=== PATIENT | female | born 1990 | race Caucasian/White ===

== ENCOUNTER 2019-06-11 10:15 | Emergency (ER) | payer MEDICAID, SELFPAY ==
[2019-06-11 10:33] VITALS: BP 109/65; PULSE 70; RESP 16; TEMP 36.8; O2SAT 98
--- NOTE | 2019-06-11 10:39 | ED.DENTAL ---
HPI - Dental/Oral General Chief complaint: Dental/Oral Stated complaint: Toothache Time Seen by Provider: 06/11/19 10:39 Source: patient and RN notes reviewed Limitations: no limitations History of Present Illness HPI Narrative: 29-year-old female who presents to [facility] care with complaints of dental pain to the right lower back molar for the past 2-3 days with pain radiating to her jaw and her ear. Patient states that she previously had a root canal and crown placed previously in [place] which fell off and she was told that she needed to have the tooth pulled. Patient states that was before she got ready to move back to [place] and she didn't want to have it done prior to moving. Patient has noted gum swelling around #30 tooth with portion of tooth missing, no drainage or noted facial swelling present, no difficulty with swallowing or breathing. MD Complaint: tooth pain Location: Tooth # (30) Onset (ago): day(s) (3) Duration: constant Severity: mild Relieving factors: nothing Exacerbating factors: chewing Context: history of dental caries Associated symptoms: gum swelling, ear pain and other (jaw pain) Treatment prior to arrival: oral analgesic Related Data Home Medications Medication Instructions Recorded Confirmed omeprazole magnesium [Prilosec OTC] 40 mg PO DAILY 06/11/19 06/11/19 Allergies Allergy/AdvReac Type Severity Reaction Status Date / Time sulfanilamide Allergy Unknown Hives Verified 06/11/19 10:37 Review of Systems Review of Systems: Narrative: CONSTITUTIONAL: Denies fever, chills, or sweats. EYES: Denies visual changes, redness, or discharge. ENT: Denies rhinorrhea, congestion, sore throat,positive right ear pain, dental pain to #30 tooth. CARDIOVASCULAR: Denies chest pain, palpitations, or edema. RESPIRATORY: Denies cough or dyspnea. GASTROINTESTINAL: Denies abdominal pain, nausea, vomiting, or diarrhea. GENITOURINARY: Denies dysuria or hematuria. SKIN: Denies rash or itching. MUSCULOSKELETAL: Denies back pain, joint pain, or myalgia. NEUROLOGIC: Denies headache, numbness, or weakness. PSYCHIATRIC: Denies anxiety or depression. All systems reviewed & are unremarkable except as noted in HPI and below PMFSH Past Medical History Medical History (Updated 06/12/19 @ 11:31 by Noemi Whitaker NP) GERD (gastroesophageal reflux disease) Surgical History Surgical History (Updated 06/12/19 @ 11:32 by Noemi Whitaker NP) Previous section Family History Family History Other Diabetes mellitus Social History Social History (Updated 06/12/19 @ 11:36 by Noemi Whitaker NP) Smoking status: Current every day smoker Tobacco type: cigarettes Alcohol intake: never Living arrangements: with family Gender identity (if verbalized by the patient): Female Comments At time of signature, agree with nursing past medical, surgical, socia history. There is no relevant family history pertinent to the presenting complaint Exam Narrative: Exam Narrative: GENERAL: Well-appearing, well-nourished, and in no acute distress. HEAD: Normocephalic, atraumatic. EYES: PERRLA and EOMI. ENT: Nares clear, no rhinorrhea or epistaxis. Mucous membranes moist.TM's normal with good light reflex, throat pink with no exudates, lesions or tonsil enlargement. no Ishan angina, redness and swelling of gum around #30 tooth with radiation of pain to right jaw and right ear, tooth had previous crown and root canal with part of tooth missing. NECK: Supple.no facial swelling or any lymphadenopathy. CHEST: Clear to auscultation. No respiratory distress.SAO2 98% on room air. HEART: Regular rate and rhythm. No murmur heard. Normal peripheral pulses. ABDOMEN: Soft, nontender, nondistended, normal active bowel sounds. EXTREMITIES: Normal range of motion. No edema. SKIN: Warm, dry, no rash. NEURO: No focal deficits. Alert and oriented x3. Course Vital Signs Vit
== END 2019-06-11 10:57 | disposition home or self-care (01) ==
PROVIDERS: Emergency Provider Registered Nurse
DX: K04.7 Periapical abscess without sinus (principal); K21.9 Gastro-esophageal reflux disease without esophagitis; F17.210 Nicotine dependence, cigarettes, uncomplicated
CPT/HCPCS: 99203; G0463

== ENCOUNTER 2019-11-19 13:25 | Emergency (ER) | payer OTHER, SELFPAY ==
--- NOTE | 2019-11-19 13:34 | ED.GENADULT ---
HPI - General Adult General Stated complaint: [place] Time Seen by Provider: 11/19/19 13:34 Source: patient Mode of arrival: ambulatory Limitations: no limitations History of Present Illness HPI narrative: 29-year-old female patient presents to the [facility] with complaints of esophageal and throat pain that started today while at work. Patient states that she did drink some coffee this morning shortly before the pain started. Patient states she is also been drinking some water today. Patient states she attempted to eat but states that the pain was too bad and was unable to eat. Patient states that she left work to the pain. Patient states she has taken to famotidine as well as Mylanta and states that the symptoms have not improved. Patient denies any fevers, body aches or chills. Patient denies any shortness of breath or chest pain. Denies any abdominal pain, nausea, vomiting or diarrhea. Patient states that she did eat some broth last night but was able to sleep and lay down without any issues last night. Patient states she has had issues with acid reflux and heartburn before in the past. Related Data Home Medications Medication Instructions Recorded Confirmed omeprazole magnesium [Prilosec OTC] 40 mg PO DAILY 06/11/19 06/11/19 Allergies Allergy/AdvReac Type Severity Reaction Status Date / Time sulfanilamide Allergy Unknown Hives Verified 06/11/19 10:37 Review of Systems Review of Systems: Narrative: CONSTITUTIONAL: Denies fever, chills, or sweats. EYES: Denies visual changes, redness, or discharge. ENT: Denies rhinorrhea, congestion, positive sore throat and esophageal pain, denies otalgia. CARDIOVASCULAR: Denies chest pain, palpitations, or edema. RESPIRATORY: Denies cough or dyspnea. GASTROINTESTINAL: Denies abdominal pain, nausea, vomiting, or diarrhea. GENITOURINARY: Denies dysuria or hematuria. SKIN: Denies rash or itching. MUSCULOSKELETAL: Denies back pain, joint pain, or myalgia. NEUROLOGIC: Denies headache, numbness, or weakness. PSYCHIATRIC: Denies anxiety or depression. [facility] Past Medical History Medical History GERD (gastroesophageal reflux disease) Surgical History Surgical History Previous section Family History Family History Other Diabetes mellitus Social History Social History Smoking status: Current every day smoker Tobacco type: cigarettes Alcohol intake: never Gender identity (if verbalized by the patient): Female Comments At the time of my signature I agree with nursing past medical history, surgical, social, and family history. There is no relevant family history pertinent to the presenting complaint. Exam Narrative: Exam Narrative: GENERAL: Well-appearing, well-nourished, and in no acute distress. HEAD: Normocephalic, atraumatic. EYES: PERRLA and EOMI. ENT: Nares clear, no rhinorrhea or epistaxis. Mucous membranes moist. Posterior pharynx with no erythema, tonsillectomy, exudates or lesions present. NECK: Supple. No lymphadenopathy CHEST: Clear to auscultation. No respiratory distress. HEART: Regular rate and rhythm. No murmur heard. Normal peripheral pulses. ABDOMEN: Soft, nontender, nondistended, normal active bowel sounds. EXTREMITIES: Normal range of motion. No edema. SKIN: Warm, dry, no rash. NEURO: No focal deficits. Alert and oriented x3. Course Vital Signs Vital signs: Vital Signs Temperature 36.7 C 11/19/19 13:35 Pulse Rate 58 L 11/19/19 13:35 Respiratory Rate 18 11/19/19 13:35 Blood Pressure 117/59 L 11/19/19 13:35 Pulse Oximetry 100 11/19/19 13:35 Temperature 36.7 C 11/19/19 13:35 Pulse Rate 58 L 11/19/19 13:35 Respiratory Rate 18 11/19/19 13:35 Blood Pressure 117/59 L 11/19/19 13:35 Pulse
[2019-11-19 13:35] VITALS: BP 117/59; PULSE 58; RESP 18; TEMP 36.7; O2SAT 100
== END 2019-11-19 13:55 | disposition home or self-care (01) ==
PROVIDERS: Emergency Provider Nurse Practitioner Family
DX: K21.9 Gastro-esophageal reflux disease without esophagitis (principal); F17.210 Nicotine dependence, cigarettes, uncomplicated
CPT/HCPCS: 99213; G0463

== ENCOUNTER 2019-11-29 09:23 | Emergency (ER) | payer OTHER, SELFPAY ==
--- NOTE | ~2019-11-29 | XR_ITS ---
XR chest 1V portable DATE: 11/29/2019 10:19 INDICATION: Cough. TECHNIQUE: Portable upright AP chest on 12/09/2019 at 1016 hours COMPARISON: None FINDINGS: Normal heart size. No hilar or mediastinal enlargement. No pulmonary infiltrate or consolid ation, pleural effusion or pulmonary vascular congestion or pneumothorax. Included skeletal structure s are unremarkable. IMPRESSION: No active cardiopulmonary disease Reviewed, dictated and finalized at location A.
[2019-11-29 09:50] VITALS: BP 119/80; PULSE 72; RESP 12; TEMP 36.9; O2SAT 98
[2019-11-29 09:51] VITALS: O2SAT 99
--- NOTE | 2019-11-29 10:35 | ECG_ITS ---
Measurements Intervals [place] Rate: 62 P: 13 MO: 132 QRS: 22 QRSD: 97 T: 31 QT: 391 QTc: 400 Interpretive Statements SINUS RHYTHM NORMAL ECG Electronically Signed On 11-29-2019 11:25:18 CDT by David Jackson D.O.
--- NOTE | 2019-11-29 10:36 | ED.URI ---
HPI - URI/Sore Throat General Chief Complaint: Upper Respiratory Infection <Vonda Condon PA-C - Last Filed: 11/29/19 12:11> Stated Complaint: covid symptoms <CARLINE Emerson Last Filed: 11/29/19 12:11> Time Seen by Provider: 11/29/19 10:11 <CARLINE Emerson Last Filed: 11/29/19 12:11> Source: patient <CARLINE Emerson Last Filed: 11/29/19 12:11> Mode of arrival: ambulatory <CARLINE Emerson Last Filed: 11/29/19 12:11> Limitations: no limitations <CARLINE Emerson Last Filed: 11/29/19 12:11> History of Present Illness HPI Narrative: This is a 29 year old female that presents to the ER for cold symptoms x 1 week. Reports fatigue, chills, cough, congestion, sore throat and some diarrhea. Also reports she has been feeling short of breath. Denies fever or chest pain. <CARLINE Emerson Last Filed: 11/29/19 12:11> Related Data Home Medications: Home Medications Medication Instructions Recorded Confirmed omeprazole magnesium [Prilosec OTC] 40 mg PO DAILY 06/11/19 06/11/19 <Vonda Condon PA-C - Last Filed: 11/29/19 12:11> Allergies/Adverse Reactions: Allergies Allergy/AdvReac Type Severity Reaction Status Date / Time sulfanilamide Allergy Unknown Hives Verified 06/11/19 10:37 <CARLINE Emerson Last Filed: 11/29/19 12:11> Review of Systems Review of Systems: Narrative: CONSTITUTIONAL: Denies fever ENT: Reports rhinorrhea, congestion, sore throat CARDIOVASCULAR: Denies chest pain, or edema. RESPIRATORY: Reports cough and dyspnea. <CARLINE Emerson Last Filed: 11/29/19 12:11> All systems reviewed & are unremarkable except as noted in HPI and below <CARLINE Emerson Last Filed: 11/29/19 12:11> PMFSH Past Medical History Medical History: Medical History (Updated 11/29/19 @ 12:11 by Vonda Condon PA-C) GERD (gastroesophageal reflux disease) <Vonda Condon PA-C - Last Filed: 11/29/19 12:11> Surgical History Surgical History: Surgical History Previous section <Vonda Condon PA-C - Last Filed: 11/29/19 12:11> Family History Family History: Family History Other Diabetes mellitus <Vonda Condon PA-C - Last Filed: 11/29/19 12:11> Social History Social History: Social History (Updated 11/29/19 @ 10:39 by Vonda Condon PA-C) Smoking status: Current every day smoker Tobacco type: cigarettes Alcohol intake: never Substance use: never Gender identity (if verbalized by the patient): Female <Vonda Condon PA-C - Last Filed: 11/29/19 12:11> Exam Narrative: Exam Narrative: GENERAL: Well-appearing, well-nourished, and in no acute distress. HEAD: Normocephalic, atraumatic. EYES: EOMI. ENT: Nares clear, no rhinorrhea or epistaxis. Mucous membranes moist. Oropharynx without tonsillar hypertrophy exudate or other lesions. Bilateral TMs pearly bai non-bulging NECK: Supple. No adenopathy or masses. CHEST: Clear to auscultation. No respiratory distress. No wheezes rales or rhonchi HEART: Regular rate and rhythm. No murmur heard. Normal peripheral pulses. EXTREMITIES: Normal range of motion. No edema. SKIN: Warm, dry, no rash. NEURO: No focal deficits. Alert and oriented x3. PSYCH: Normal mood and affect <Vonda Condon PA-C - Last Filed: 11/29/19 12:11> Course Vital Signs Vital signs: Vital Signs Temperature 98.5 F 11/29/19 09:50 Pulse Rate 72 11/29/19 09:50 Respiratory Rate 12 11/29/19 09:50 Blood Pressure 119/80 11/29/19 09:50 Pulse Oximetry 98 11/29/19 09:50 Temperature 98.5 F 11/29/19 09:50 Pulse Rate 70 11/29/19 11:54 Respiratory Rate 12 11/29/19 11:54 Blood Pressure 114/67 11/29/19 11:54 Pulse Oximetry 99 11/29/19 11:54 <Vonda Condon PA-C - Last Filed: 11/29/19
[2019-11-29 11:00] LABS: Basophils Absolute Auto 0.1 K/mm3 (0.0-0.1); Basophils Percent Auto 0.7 % (0.2-1.2); Eosinophils Absolute Auto 0.2 K/mm3 (0-0.3); Eosinophils Percent Auto 1.9 % (0-4.4); Hematocrit 40.8 % (37.0-47.0); Hemoglobin 13.7 g/dL (12.0-15.0); Immature Granulocyte Absolute 0.03 K/mm3 (0.00-0.031); Immature Granulocyte Percent A 0.3 % (0-0.5); Lymphocytes Absolute Auto 3.05 K/mm3 (0.9-3.2); Lymphocytes Percent Auto 26.8 % (18.3-44.2); Mean Corpuscular HGB Conc 33.6 g/dl (32-36); Mean Corpuscular Hemoglobin 29.9 pg (26-34); Mean Corpuscular Volume 89.1 fl (80-100); Mean Platelet Volume 10.7 fl (7.4-10.4); Monocytes Absolute Auto 0.7 K/mm3 (0.1-0.6); Monocytes Percent Auto 5.9 % (2.6-8.5); Neutrophils Absolute Auto 7.3 K/mm3 (1.3-6.7); Neutrophils Percent Auto 64.4 % (45.5-73.1); Platelet Count Result 277 k/mm3 (150-375); Red Blood Count 4.58 M/mm3 (4.2-5.4); Red Cell Distribution Width 12.4 % (11.5-14.5); White Blood Count 11.4 K/mm3 (4.5-10.0)
[2019-11-29 11:23] LABS: Alanine Aminotransferase 15 U/L (4-35); Albumin Level 4.4 g/dL (3.5-5.1); Alkaline Phosphatase 65 U/L (38-126); Anion Gap 9 mmol/L (8-16); Aspartate Amino Transferase 23 U/L (14-36); Bilirubin,Total 0.2 mg/dL (0.2-1.3); Blood Urea Nitrogen 11 mg/dL (7-17); Carbon Dioxide 25 mmol/L (22-30); Chloride 105 mmol/L (98-107); Estimated Glomerular Filt Rate > 60; Glucose 104 mg/dL (65-105); Lactate Dehydrogenase 419 U/L (313-618); Potassium 4.1 mmol/L (3.4-5.0); Sodium 139 mmol/L (137-145)
[2019-11-29 11:54] VITALS: BP 114/67; PULSE 70; RESP 12; O2SAT 99
[2019-11-29 23:12] LABS: SARS-CoV-2 RNA PCR Negative
== END 2019-11-29 12:15 | disposition home or self-care (01) ==
PROVIDERS: Physician Assistant; Emergency Provider General Practice
DX: B34.9 Viral infection, unspecified (principal); Z20.828 Contact with and (suspected) exposure to other viral communicable diseases; K21.9 Gastro-esophageal reflux disease without esophagitis; F17.210 Nicotine dependence, cigarettes, uncomplicated
CPT/HCPCS: 36415; 71045; 80053; 82728; 83615; 85025; 87635; 93005; 99283; C9803; U0003

== ENCOUNTER 2020-02-05 09:20 | Emergency (ER) | payer OTHER, MEDICAID, SELFPAY ==
--- NOTE | 2020-02-05 09:32 | ED.EAR ---
HPI - Ear Problem General Chief complaint: Ear Stated complaint: Ear pain Time Seen by Provider: 02/05/20 09:32 Source: patient and RN notes reviewed Mode of arrival: ambulatory Limitations: no limitations History of Present Illness HPI Narrative: 29-year-old female presents with bilateral ear pain, right-sided throat pain, nasal congestion, rhinorrhea, sweats. She denies chills, body aches, cough, shortness of breath, loss of sense of taste or smell. Denies any known sick contacts MD Complaint: ear pain Related Data Allergies Allergy/AdvReac Type Severity Reaction Status Date / Time Sulfa (Sulfonamide Allergy Mild Hives Verified 02/05/20 09:48 Antibiotics) nitrofurantoin Allergy Unknown VOMITING Verified 01/02/20 14:04 AND DIARRHEA sulfanilamide Allergy Unknown Hives Verified 01/02/20 14:04 NITROFURANTOIN MACROCRYSTAL Allergy Unknown VOMITING Uncoded 01/02/20 14:04 Review of Systems Review of Systems: Narrative: CONSTITUTIONAL: Denies malaise, chills, or fever. Reports sweats EYES: Denies visual changes, redness, or discharge. ENT: Reports rhinorrhea, congestion, otalgia and sore throat. CARDIOVASCULAR: Denies chest pain, palpitations, or edema. RESPIRATORY: Denies cough or dyspnea. GASTROINTESTINAL: Denies abdominal pain, nausea, vomiting, diarrhea SKIN: Denies rash or itching. MUSCULOSKELETAL: Denies myalgia. NEUROLOGIC: Denies headache. All systems reviewed & are unremarkable except as noted in HPI and below PMFSH Past Medical History Medical History (Updated 02/05/20 @ 09:51 by Charisma Shi NP) GERD (gastroesophageal reflux disease) Surgical History Surgical History (System 01/02/20 @ 14:04 by Kylah Lora) Previous section Family History Family History (System 01/02/20 @ 14:04 by Kylah Lora) Other Diabetes mellitus Social History Social History (System 01/02/20 @ 14:04 by Kylah Lora) Smoking status: Current every day smoker Tobacco type: cigarettes Alcohol intake: never Substance use: never Gender identity (if verbalized by the patient): Female Comments At time of signature, agree with nursing past medical, surgical, social and family history. There is no relevant family history pertinent to the presenting complaint Exam Narrative: Exam Narrative: GENERAL: Well-appearing, well-nourished, and in no acute distress. HEAD: Normocephalic EYES: PERRLA, conjunctivae clear ENT: Nares clear, turbinates edematous and erythematous, clear discharge. Mucous membranes moist. TM pearly bai with dull light reflex bilaterally; no tragal tenderness. Oropharynx erythematous without lesions. Tonsils not enlarged and without exudate, no drooling, no hoarseness, no trismus, uvula midline. NECK: Supple. No lymphadenopathy CHEST: Clear to auscultation, breath sounds equal. No wheezing, rhonchi, rales, or stridor. No respiratory distress, speaks in full sentences. HEART: Regular rate and rhythm. No murmur heard. SKIN: Warm, dry, no rash. NEURO: Alert and oriented x3. PSYCH: Normal mood and affect Course Course Emergency Course: Patient is aware of diagnosis, understands and agrees to treatment plan. Anticipatory guidance given. Patient agrees to follow-up as directed and is aware of reasons to seek care at the emergency department. Portions of this record may have been created with voice recognition software Vital Signs Vital signs: Vital Signs Temperature 99.0 F 02/05/20 09:36 Pulse Rate 80 02/05/20 09:36 Respiratory Rate 16 02/05/20 09:36 Blood Pressure 140/82 02/05/20 09:36 Pulse Oximetry 100 02/05/20 09:36 Temperature 99.0 F 02/05/20 09:36 Pulse Rate 80 02/05/20 09:36 Respiratory Rate 16 02/05/20 09:36 Blood Pressure 140/82 02/05/20 09:36 Pulse Oximetry 100 02/05/20 09:36 Reviewed. Medical Decision Making MDM Narrative Medical decision making narrative: Differential diagnosis considered: [place]
[2020-02-05 09:36] VITALS: BP 140/82; PULSE 80; RESP 16; TEMP 37.2; O2SAT 100
== END 2020-02-05 09:57 | disposition home or self-care (01) ==
PROVIDERS: Emergency Provider Nurse Practitioner
DX: J06.9 Acute upper respiratory infection, unspecified (principal); Z20.828 Contact with and (suspected) exposure to other viral communicable diseases; F17.210 Nicotine dependence, cigarettes, uncomplicated; K21.9 Gastro-esophageal reflux disease without esophagitis
CPT/HCPCS: 87081; 87880; 99213; G0463

== ENCOUNTER 2020-02-05 10:09 | Outpatient (NON) | payer OTHER, MEDICAID, SELFPAY ==
[2020-02-05 22:32] LABS: SARS-CoV-2 RNA PCR Negative
== END 2020-02-05 10:10 ==
LOC: ANHCOVIDDT 10:13
PROVIDERS: Visit Provider Nurse Practitioner
DX: J06.9 Acute upper respiratory infection, unspecified (principal)
CPT/HCPCS: 87635; C9803; U0003

== ENCOUNTER 2021-03-04 15:04 | Outpatient (CLI) | payer OTHER, SELFPAY ==
--- NOTE | ~2021-03-04 | XR_ITS ---
XR knee LT 3V DATE: 03/04/2021 15:32 INDICATION: Left knee pain TECHNIQUE: AP, lateral, sunrise views COMPARISON: None FINDINGS: There is mild suprapatellar knee joint effusion. No fracture, dislocation, periosteal reaction or bone destruction, joint space narrowing, radiopaque intra-articular loose body or chondrocalcinosis is detected. IMPRESSION: Mild knee joint effusion Reviewed, dictated and finalized at location [facility]. [employer] IMPRESSION: Mild knee joint effusion
== END 2021-03-04 15:05 ==
LOC: MICIMG 15:07
PROVIDERS: Visit Provider Physician Assistant
DX: M25.462 Effusion, left knee (principal)
CPT/HCPCS: 73562

== ENCOUNTER 2021-04-06 19:06 | Emergency (ER) | payer OTHER, MEDICAID, SELFPAY ==
[2021-04-06 19:17] VITALS: BP 127/68; PULSE 79; RESP 18; TEMP 36.9; O2SAT 98
--- NOTE | 2021-04-06 19:37 | ED.GENADULT ---
HPI - General Adult General Chief complaint: Upper Respiratory Infection Stated complaint: Congestion Source: patient Mode of arrival: ambulatory Limitations: no limitations History of Present Illness HPI narrative: Patient presents for evaluation of sinus congestion, drainage, headache since Monday. She further endorses sore throat and sensation that there is fluid in her right ear. She has a popping sensation in her right ear. She has experienced thick mucopurulent discharge from her nares, productive cough of green/yellow sputum, fever and chills. She denies any nausea, vomiting, chest pain, diarrhea. She has taken dayquil and nyquil without much improvement. She had COVID in November 2020. She has not received COVID vaccination. She is unsure whether she had a flu shot. One of her friends recently had similar symptoms. She does not smoke. LMP ended yesterday. No additional complaints or concerns. Related Data Allergies Allergy/AdvReac Type Severity Reaction Status Date / Time Sulfa (Sulfonamide Allergy Mild Hives Verified 02/05/20 09:48 Antibiotics) nitrofurantoin Allergy Unknown VOMITING Verified 01/02/20 14:04 AND DIARRHEA sulfanilamide Allergy Unknown Hives Verified 01/02/20 14:04 NITROFURANTOIN MACROCRYSTAL Allergy Unknown VOMITING Uncoded 01/02/20 14:04 Review of Systems Review of Systems: CONSTITUTIONAL: Reports fever and chills EYES: Denies visual changes, redness, or discharge. ENT: Reports sinus congestion, drainage, sore throat and sensation of middle ear fluid on right CARDIOVASCULAR: Denies chest pain, palpitations, or edema. RESPIRATORY: Reports cough and SOB. GASTROINTESTINAL: Denies abdominal pain, nausea, vomiting, or diarrhea. GENITOURINARY: Denies dysuria or hematuria. SKIN: Denies rash or itching. MUSCULOSKELETAL: Denies back pain, joint pain, or myalgia. NEUROLOGIC: Reports headache. Denies numbness, dizziness, or weakness. PSYCHIATRIC: Denies anxiety or depression. [facility] Past Medical History Medical History Anxiety Depression GERD (gastroesophageal reflux disease) Surgical History Surgical History Previous section Family History Family History Mother Diabetes mellitus Social History Social History Alcohol intake: never Substance use: never Living arrangements: with family Gender identity (if verbalized by the patient): Female Sexual Orientation (if Verbalized by the Patient): Straight or Heterosexual Spiritual care concerns: No Exam Narrative: GENERAL: Well-appearing, well-nourished, and in no acute distress. HEAD: Normocephalic, atraumatic. EYES: PERRLA and EOMI. ENT: Nares clear, no rhinorrhea or epistaxis. Mucous membranes moist. Oropharynx without tonsillar hypertrophy exudate or other lesions. There is posterior pharyngeal erythema. Right TM is erythematous with middle ear fluid present. Ilateral TMs pearly bai nonbulging NECK: Supple. No adenopathy or masses. No carotid bruits or JVD CHEST: Clear to auscultation. No respiratory distress. No wheezes rales or rhonchi HEART: Regular rate and rhythm. No murmur heard. Normal peripheral pulses. ABDOMEN: Soft, nontender, nondistended, normal active bowel sounds. EXTREMITIES: Normal range of motion. No edema. SKIN: Warm, dry, no rash. NEURO: No focal deficits. Alert and oriented x3. PSYCH: Normal mood and affect. Course Course Emergency Course: This is a 31-year-old female who presented with respiratory symptoms and sore throat. Strep was negative. Covid negative. Influenza negative. Will treat with Augmentin in the event that her strep was a false negative. Also provided with a prescription for Mucinex DM. Advised increase hydration. Follow-up o
== END 2021-04-06 19:56 | disposition home or self-care (01) ==
PROVIDERS: Emergency Provider Nurse Practitioner
DX: J02.9 Acute pharyngitis, unspecified (principal); Z20.822 Contact with and (suspected) exposure to COVID-19; K21.9 Gastro-esophageal reflux disease without esophagitis; Z86.16 Personal history of COVID-19
CPT/HCPCS: 87081; 87426; 87804; 87880; 99213; C9803; G0463

== ENCOUNTER 2021-07-17 08:29 | Emergency (ER) | payer OTHER, SELFPAY ==
[2021-07-17 08:38] VITALS: BP 122/70; PULSE 83; RESP 18; TEMP 36.6; O2SAT 100
--- NOTE | 2021-07-17 08:38 | ED.SKABFB ---
HPI - Skin/Abscess/Foreign Bdy General Chief complaint: Skin/Abscess/Foreign Body Stated complaint: Ingrown Hair Time Seen by Provider: 07/17/21 08:41 Source: patient Mode of arrival: ambulatory Limitations: no limitations History of Present Illness HPI narrative: 31 y/o female presented for c/o ingrown hair to [place] area. States this is her second time having an ingrown hair. MD complaint: rash Related Data Home Medications Medication Instructions Recorded Confirmed venlafaxine 37.5 mg 1 cap PO DAILY 07/17/21 07/17/21 capsule,extended release 24 hr Allergies Allergy/AdvReac Type Severity Reaction Status Date / Time Sulfa (Sulfonamide Allergy Mild Hives Verified 07/17/21 08:43 Antibiotics) nitrofurantoin Allergy Unknown VOMITING Verified 07/17/21 08:43 AND DIARRHEA sulfanilamide Allergy Unknown Hives Verified 07/17/21 08:43 NITROFURANTOIN MACROCRYSTAL Allergy Unknown VOMITING Uncoded 07/17/21 08:43 Review of Systems Review of Systems: CONSTITUTIONAL: Denies fever, chills, or sweats. ENT: Denies rhinorrhea, congestion CARDIOVASCULAR: Denies chest pain RESPIRATORY: Denies cough or dyspnea. GASTROINTESTINAL: Denies abdominal pain GENITOURINARY: Denies dysuria or hematuria. SKIN: reports pimple to [place] MUSCULOSKELETAL: Denies back pain NEUROLOGIC: Denies headache PMFSH Past Medical History Medical History Anxiety Depression GERD (gastroesophageal reflux disease) Surgical History Surgical History Previous section Family History Family History Mother Diabetes mellitus Social History Social History Alcohol intake: never Substance use: never Gender identity (if verbalized by the patient): Female Sexual Orientation (if Verbalized by the Patient): Straight or Heterosexual Spiritual care concerns: No Comments At time of signature, I have reviewed and agree with nursing past medical, surgical, social and family history unless otherwise noted. Please see nursing chart for further information. There is no relevant family history pertinent to the presenting complaint Exam Narrative: GENERAL: Well-appearing HEAD: Normocephalic, atraumatic. EYES: conjunctivae clear, and EOMI. ENT: Mucous membranes moist. NECK: Supple. No lymphadenopathy CHEST: Clear to auscultation. No respiratory distress. HEART: Regular rate and rhythm. SKIN: Warm, dry. approx 3mm diameter pustule with active bloody drainage to center to right pubic; no induration or fluctuance, warmth or streaking NEURO: Alert and oriented x3. Course Course Emergency Course: Patient is aware of diagnosis, understands and agrees to treatment plan. Anticipatory guidance given. Patient agrees to follow-up as directed and is aware of reasons to seek care at the emergency department. Portions of this record may have been created with voice recognition software Level of Care: Express Care Visit Vital Signs Vital signs: Reviewed MDM - Skin/Abscess/Foreign Bdy MDM Narrative Medical decision making narrative: Pt had presented for painful abscess/boil to right [place] area, however at time of assessment she states I think it just popped. Endorsed active drainage to the site, pain improved. On exam active bloody drainage and no induration or fluctuance, minimally tender. Advised supportive treatment. v/u. Instructed patient to go to nearest ER immediately for any worsening symptoms including but not limited to: fever, pain, sore throat, headache, dizziness, chest pain, trouble breathing, or any symptoms concerning to the patient. Differential Diagnosis Differential diagnosis: Likely abscess of skin or subcutaneous tissue, urticaria, herpes zoster, cellulitis and contact dermatitis Discharg
== END 2021-07-17 08:52 | disposition home or self-care (01) ==
PROVIDERS: Emergency Provider Nurse Practitioner Family
DX: L08.9 Local infection of the skin and subcutaneous tissue, unspecified (principal); K21.9 Gastro-esophageal reflux disease without esophagitis; F41.9 Anxiety disorder, unspecified; F32.A Depression, unspecified
CPT/HCPCS: 99211; G0463

== ENCOUNTER 2021-10-07 10:26 | Emergency (ER) | payer OTHER, SELFPAY ==
--- NOTE | 2021-10-07 10:34 | PC.NURSE ---
pt states she actually needs to go to the imaging center and does not need to be seen in the ER.
== END 2021-10-07 11:00 | disposition left against medical advice (07) ==
LOC: ANHED 10:50
DX: Z53.21 Procedure and treatment not carried out due to patient leaving prior to being seen by health care provider (principal)
CPT/HCPCS: 99199

== ENCOUNTER 2021-10-26 08:55 | Outpatient (CLI) | payer OTHER, SELFPAY ==
--- NOTE | ~2021-10-26 | XR_ITS ---
EXAMINATION: XR barium swallow DATE: 10/26/2021 09:27 INDICATION: Dysphagia TECHNIQUE: The patient drank thick barium, gas-producing crystals, and thin barium. Fluoroscopic spot radiographs of the hypopharynx and esophagus were obtained. Fluoroscopy exposure time was 1.7 minut es. A total of 1309 fluoroscopic images were recorded. COMPARISON: None. FINDINGS: The pharynx is symmetric and without evidence of mass lesion or mucosal irregularity. The e sophagus is normal without mass or stricture. Esophageal motility is normal. Small sliding-type hiata l hernia with esophageal B ring at the gastroesophageal junction positioned approximately 4 cm above the level of the diaphragm. Slightly more cephalad esophageal A ring. No significant stenosis at eith er the A or B rings both of which dilated to at least 1.7 cm hypoechoic intraluminal diameter. There was no gastroesophageal reflux with provocative maneuvers. IMPRESSION: 1. Small sliding-type hiatal hernia with no significant stenosis at the esophageal A and B rings in t he distal esophagus. Reviewed, dictated and finalized at location A. IMPRESSION: 1. Small sliding-type hiatal hernia with no significant stenosis at the esophag eal A and B rings in the distal esophagus.
== END 2021-10-26 08:56 | disposition home or self-care (01) ==
LOC: ANHIMG 08:56
PROVIDERS: PCP Physician Assistant; Visit Provider Physician Assistant
DX: R13.10 Dysphagia, unspecified (principal); K44.9 Diaphragmatic hernia without obstruction or gangrene
CPT/HCPCS: 74220

== ENCOUNTER 2022-01-14 09:59 | Emergency (ER) | payer OTHER, SELFPAY ==
[2022-01-14 10:15] VITALS: BP 112/61; PULSE 69; RESP 16; TEMP 36.4; O2SAT 99
--- NOTE | 2022-01-14 11:05 | ED.GENADULT ---
HPI - General Adult General Chief complaint: Urogenital-Female Stated complaint: uti/cold sx Time Seen by Provider: 01/14/22 11:06 Source: patient, RN notes reviewed and old records reviewed Mode of arrival: ambulatory Limitations: no limitations History of Present Illness HPI narrative: 31-year-old female presents to the [facility] with complaints upper respiratory issues, cold, cough, congestion. Patient is a smoker. Patient also complaining of urinary symptoms, frequency, burning. Denies abdominal pain or chest pain. No shortness of breath. Related Data Home Medications Medication Instructions Recorded Confirmed venlafaxine 37.5 mg 1 cap PO DAILY 07/17/21 01/14/22 capsule,extended release 24 hr pantoprazole 40 mg tablet,delayed 40 mg PO DAILY 01/14/22 01/14/22 release propranolol 20 mg tablet 20 mg PO DAILY 01/14/22 01/14/22 Allergies Allergy/AdvReac Type Severity Reaction Status Date / Time Sulfa (Sulfonamide Allergy Mild Hives Verified 01/14/22 10:09 Antibiotics) nitrofurantoin Allergy Unknown VOMITING Verified 01/14/22 10:09 AND DIARRHEA sulfanilamide Allergy Unknown Hives Verified 01/14/22 10:09 NITROFURANTOIN MACROCRYSTAL Allergy Unknown VOMITING Uncoded 01/14/22 10:09 Review of Systems Review of Systems: All systems reviewed & are unremarkable except as noted in HPI and below Constitutional: Constitutional: Reports no additional constitutional complaints, Denies chills and Denies fever(s) Eyes: Eyes: Reports no additional eye complaints ENT: Reports as per HPI and Reports nasal congestion Cardiovascular: Cardiovascular: Reports no additional cardiovascular complaints Respiratory: Respiratory: Reports as per HPI, Reports chest congestion, Reports cough and Denies dyspnea Gastrointestinal: Gastrointestinal: Reports no additional gastrointestinal complaints Genitourinary: Genitourinary: Reports as per HPI and Reports dysuria Musculoskeletal: Musculoskeletal: Reports no additional musculoskeletal complaints Integumentary/Breasts: Skin/Breast: Reports system reviewed and no additional complaints, except as docu Neurologic: Reports system reviewed and no additional complaints, except as documented Psychiatric: Psychiatric: Reports no additional psychiatric complaints Allergic/Immunologic: Allergic/Immunologic: Reports no additional allergic/immunologic complaints PMFSH Past Medical History Medical History Anxiety Depression GERD (gastroesophageal reflux disease) Surgical History Surgical History Previous section Family History Family History Mother Diabetes mellitus Social History Social History Alcohol intake: never Substance use: never Gender identity (if verbalized by the patient): Female Sexual Orientation (if Verbalized by the Patient): Straight or Heterosexual Spiritual care concerns: No Comments At the time of my signature, I reviewed and agree with the nursing past medical, surgical, social, and family history. There is no relevant family history pertinent to the patient complaint. Exam Const: General: healthy appearing, comfortable, no acute distress, well developed, alert and well nourished Nutritional Appearance: well nourished Orientation/consciousness: patient oriented x3 Limitations: no limitations HENMT: Head: normal to inspection Ears: external ears normal, TM's normal bilaterally and EAC's normal Face/Nose/Sinus: Normal external nose present and Normal nares present Face and sinus: normal facial exam Throat: posterior oropharynx normal and uvula midline Eyes: General: appearance normal, both eyes and all related structures Conjunctivae: conjunctivae normal Pupils: Equal, round and reactive pupils present
== END 2022-01-14 11:48 | disposition home or self-care (01) ==
PROVIDERS: Emergency Provider Nurse Practitioner; PCP Physician Assistant
DX: J40 Bronchitis, not specified as acute or chronic (principal); N76.0 Acute vaginitis; K21.9 Gastro-esophageal reflux disease without esophagitis; F41.9 Anxiety disorder, unspecified; F32.A Depression, unspecified
CPT/HCPCS: 81003; 87070; 87491; 87591; 87661; 99214; G0463

== ENCOUNTER 2022-04-23 16:23 | Emergency (ER) | payer OTHER, SELFPAY ==
[2022-04-23 16:38] VITALS: BP 137/89; PULSE 104; RESP 20; TEMP 37.4; O2SAT 100
--- NOTE | 2022-04-23 16:47 | ED.URI ---
HPI - URI/Sore Throat General Chief Complaint: Upper Respiratory Infection Stated Complaint: Sore Throat/Vaginal Problems Time Seen by Provider: 04/23/22 16:50 Source: patient Mode of arrival: ambulatory Limitations: no limitations History of Present Illness HPI Narrative: Nydia is a 32-year-old female patient presenting to clinic today with multiple complaints. She reports that she has sore throat, headache, body aches, chills, possible vaginal laceration, and vaginal discharge. She reports that she was shaving her perineal area and may have cut the area and is having a lot of pain with urination over this area. MD elicited complaint: sore throat and nasal congestion Related Data Home Medications Medication Instructions Recorded Confirmed venlafaxine 37.5 mg 1 cap PO DAILY 07/17/21 01/14/22 capsule,extended release 24 hr pantoprazole 40 mg tablet,delayed 40 mg PO DAILY 01/14/22 01/14/22 release propranolol 20 mg tablet 20 mg PO DAILY 01/14/22 01/14/22 Allergies Allergy/AdvReac Type Severity Reaction Status Date / Time Sulfa (Sulfonamide Allergy Mild Hives Verified 01/14/22 10:09 Antibiotics) nitrofurantoin Allergy Unknown VOMITING Verified 01/14/22 10:09 AND DIARRHEA sulfanilamide Allergy Unknown Hives Verified 01/14/22 10:09 NITROFURANTOIN MACROCRYSTAL Allergy Unknown VOMITING Uncoded 01/14/22 10:09 Review of Systems Review of Systems: Pertinent positives per HPI. Patient denies any fever, rash, visual changes, dizziness, cough, shortness of breath, chest pain, palpitations, nausea, vomiting, diarrhea, constipation, abdominal pain, or any urinary issues. [facility] Past Medical History Medical History Anxiety Depression GERD (gastroesophageal reflux disease) Surgical History Surgical History Previous section Family History Family History Mother Diabetes mellitus Social History Social History Alcohol intake: never Substance use: never Living arrangements: with family Gender identity (if verbalized by the patient): Female Sexual Orientation (if Verbalized by the Patient): Straight or Heterosexual Spiritual care concerns: No Comments At the time of my signature, I reviewed and agree with the nursing past medical, surgical, social, and family history. There is no relevant family history pertinent to the patient complaint. Exam Narrative: General: Well-developed, well nourished, in no apparent distress Head: Normocephalic, atraumatic Eyes: Pupils equally round and reactive to light bilaterally, EOM intact, sclera and conjunctive clear, no discharge, lids normal Ears: TMs intact and clear, ear canals clear, no drainage, grossly hearing normal. Nose: Nares patent, clear nasal discharge, no inflammation, no sinus tenderness. Mouth: Oral pharynx without lesions or masses, good dentition, MMM. Oropharynx red with bilateral tonsillar enlargement Neck: Supple, trachea midline, enlargement of anterior cervical nodes, no thyroid masses or goiter palpable. Cardio: Regular rate and rhythm, s1 and s2 normal, no murmur appreciated. Resp: Clear to auscultation bilaterally, no rhonchi, rales, wheezing or rubs Abdomen: Soft, pliable, nontender to palpation, bowel sounds present all 4 quadrants, nondistended, no organomegaly, no CVAT tenderness : Pelvic exam performed with (Allegra CALDERON) at bedside. Verbal consent obtained from patient. Normal external female genitalia masses, perineal excoriation/small superficial laceration Urinary meatus: patent without discharge, Vagina: No lesions, masses, thick creamy odorous white vaginal discharge Course Course Emergency Course: Portions of this record may have been created with bryannai
== END 2022-04-23 17:03 | disposition home or self-care (01) ==
PROVIDERS: Emergency Provider Nurse Practitioner Family; PCP Physician Assistant
DX: S31.41XA Laceration without foreign body of vagina and vulva, initial encounter (principal); J02.0 Streptococcal pharyngitis; N76.0 Acute vaginitis; W45.8XXA Other foreign body or object entering through skin, initial encounter
CPT/HCPCS: 87880; 99213; G0463

== ENCOUNTER 2022-06-10 11:25 | Emergency (ER) | payer OTHER, SELFPAY ==
--- NOTE | ~2022-06-10 | XR_ITS ---
EXAMINATION: XR knee RT min 4V DATE: 06/10/2022 12:09 INDICATION: Diffuse right knee pain post injury one week prior TECHNIQUE: Anteroposterior, 2 oblique and crosstable lateral views of the affected knee were obtained COMPARISON: None. FINDINGS: Alignment is normal. No fracture. Joint spaces appear normal on nonweightbearing imaging. There is s ubtle chondrocalcinosis at the lateral compartment. Small right knee joint effusion without layering lipohemarthrosis. Soft tissues are unremarkable. IMPRESSION: 1. Small right knee joint effusion. No osseous abnormality. Reviewed, dictated and finalized at location A.
[2022-06-10 11:36] VITALS: BP 130/75; PULSE 69; RESP 16; TEMP 36.8; O2SAT 99
--- NOTE | 2022-06-10 11:38 | ED.LOWEXIN ---
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 She states it ?popped out of place and after 3 minutes she was able to pop it back into place ?. Patient has history of ACL injury and surgery on the knee. Patient states she made incident report at work that day but did not hear anything until today. States they want her to have an x-ray to give to them. Patient has been using a knee brace, ice and heat, and alternating Tylenol ibuprofen for pain. Patient also still having sore throat. Was treated for strep throat 2 weeks ago and symptoms have not resolved. Related Data Home Medications Medication Instructions Recorded Confirmed venlafaxine 37.5 mg 1 cap PO DAILY 07/17/21 06/10/22 capsule,extended release 24 hr pantoprazole 40 mg tablet,delayed 40 mg PO DAILY 01/14/22 06/10/22 release propranolol 20 mg tablet 20 mg PO DAILY 01/14/22 06/10/22 Allergies Allergy/AdvReac Type Severity Reaction Status Date / Time Sulfa (Sulfonamide Allergy Mild Hives Verified 06/10/22 11:34 Antibiotics) nitrofurantoin Allergy Unknown VOMITING Verified 06/10/22 11:34 AND DIARRHEA sulfanilamide Allergy Unknown Hives Verified 06/10/22 11:34 NITROFURANTOIN MACROCRYSTAL Allergy Unknown VOMITING Uncoded 06/10/22 11:34 Review of Systems Review of Systems: All systems reviewed & are unremarkable except as noted in HPI and below Constitutional: Constitutional: Denies body ache(s), Denies fever(s), Denies headache(s), Denies malaise and Denies weakness Eyes: Eyes: Denies loss of vision ENT: Denies otalgia, Denies headache(s), Denies nasal discharge, Denies sinus pain and Reports sore throat Cardiovascular: Cardiovascular: Denies chest pain, Denies irregular heart rhythm and Denies dyspnea Respiratory: Respiratory: Denies dyspnea Gastrointestinal: Gastrointestinal: Denies abdominal pain, Denies melena, Denies hematochezia, Denies diarrhea, Denies nausea and Denies vomiting Musculoskeletal: Musculoskeletal: Denies back pain, Denies myalgias and Reports arthralgias Integumentary/Breasts: Skin/Breast: Denies pruritus and Denies rash Neurologic: Denies headache(s), Denies loss of vision and Denies weakness Psychiatric: Psychiatric: Reports no additional psychiatric complaints PMFSH Past Medical History Medical History Anxiety Depression GERD (gastroesophageal reflux disease) Surgical History Surgical History Previous section Family History Family History Mother Diabetes mellitus Social History Social History Alcohol intake: never Substance use: never Living arrangements: with family Gender identity (if verbalized by the patient): Female Sexual Orientation (if Verbalized by the Patient): Straight or Heterosexual Spiritual care concerns: No Comments At time of signature, agree with nursing past medical, surgical, social and family history. There is no relevant family history pertinent to the presenting complaint. Exam Const: General: cooperative, healthy appearing, comfortable, no acute distress and well nourished Nutritional Appearance: well nourished Orientation/consciousness: patient oriented x3 Limitations: no limitations HENMT: Head: normal to inspection, normocephalic and atraumatic Ears: hearing grossly normal bilaterally, external ears normal and TM abnormal scarred bilateral Face/Nose/Sinus: Normal
== END 2022-06-10 12:42 | disposition home or self-care (01) ==
PROVIDERS: Emergency Provider Nurse Practitioner Family; PCP Physician Assistant
DX: S83.91XA Sprain of unspecified site of right knee, initial encounter (principal); X50.9XXA Other and unspecified overexertion or strenuous movements or postures, initial encounter; K21.9 Gastro-esophageal reflux disease without esophagitis; F41.9 Anxiety disorder, unspecified; F32.A Depression, unspecified
CPT/HCPCS: 73564; 87081; 87880; 99213; G0463

== ENCOUNTER 2022-11-28 19:07 | Emergency (ER) | payer OTHER, SELFPAY ==
--- NOTE | 2022-11-28 19:11 | ED.FEMALEGU ---
HPI - Female Genitourinary General Chief complaint: Urogenital-Female Stated complaint: vaginal issue Time Seen by Provider: 11/28/22 19:25 Source: patient and RN notes reviewed Mode of arrival: ambulatory Limitations: no limitations History of Present Illness HPI Narrative: 32-year-old female presents with concern for pain in her perineal area. She reports she had a laceration there several months ago and feels like that, however she does not know any factors that would have caused it. She reports she has been doing the Epson salt baths, using Vaseline. Reports pain is made worse when she has a bowel movement MD elicited complaint: other Related Data Home Medications Medication Instructions Recorded Confirmed Acid Medicare Biller (omeprazole) 11/28/22 Allergies Allergy/AdvReac Type Severity Reaction Status Date / Time Sulfa (Sulfonamide Allergy Mild Hives Verified 11/28/22 19:10 Antibiotics) nitrofurantoin Allergy Unknown VOMITING Verified 11/28/22 19:10 AND DIARRHEA Review of Systems Review of Systems: CONSTITUTIONAL: Denies malaise, chills, sweats, or fever. : Denies frequency, urgency SKIN: Reports perineal pain, reports it ramirez when she urinates All systems reviewed & are unremarkable except as noted in HPI and below PMFSH Past Medical History Medical History Anxiety Depression GERD (gastroesophageal reflux disease) Surgical History Surgical History Previous section Family History Family History Mother Diabetes mellitus Social History Social History Alcohol intake: never Substance use: never Living arrangements: with family Gender identity (if verbalized by the patient): Female Sexual Orientation (if Verbalized by the Patient): Straight or Heterosexual Spiritual care concerns: No Comments At time of signature, agree with nursing past medical, surgical, social and family history. There is no relevant family history pertinent to the presenting complaint Exam Narrative: GENERAL: Well-appearing, well-nourished, and in no acute distress. HEAD: Normocephalic, atraumatic. EYES: PERRLA, conjunctivae clear ENT: Mucous membranes moist. NECK: Supple. No lymphadenopathy CHEST: Clear to auscultation. No respiratory distress. HEART: Regular rate and rhythm. SKIN: Warm, dry. NEURO: Alert and oriented x3. PSYCH: Normal mood and affect : Female genitals images: 1. fissure Course Course Emergency Course: Patient is aware of diagnosis, understands and agrees to treatment plan. Anticipatory guidance given. Patient agrees to follow-up as directed and is aware of reasons to seek care at the emergency department. Portions of this record may have been created with voice recognition software Level of Care: Express Care Visit Vital Signs Vital signs: Reviewed. MDM - Female Genitourinary MDM Narrative Medical decision making narrative: Exam findings show no acute concerns or changes; patient is non-toxic appearing and is in no distress. Patient is appropriate for outpatient treatment and follow-up. Critical Care Time Critical Care Time Critical Care Time: No Discharge Plan Discharge Clinical Impression: Perineal fissure Patient Disposition: Home, Self-Care Condition: Stable Instructions: Sitz Bath (DC) Additional Instructions: Take Sitz baths as directed, apply emollient such as Vaseline throughout the day. Take stool softeners to avoid straining while having a bowel movement. Apply ointments as prescribed, you can alternate antibiotic ointment with the numbing ointment Make an appointment with your data warehouse consultant for further evaluation Prescriptions: New mupirocin 2 % ointment
[2022-11-28 19:17] VITALS: BP 126/67; PULSE 81; RESP 16; TEMP 36.8; O2SAT 98
== END 2022-11-28 19:36 | disposition home or self-care (01) ==
PROVIDERS: Emergency Provider Nurse Practitioner; PCP Physician Assistant
DX: N90.89 Other specified noninflammatory disorders of vulva and perineum (principal); K21.9 Gastro-esophageal reflux disease without esophagitis
CPT/HCPCS: 99213; G0463

== ENCOUNTER 2022-12-21 09:43 | Emergency (ER) | payer OTHER, SELFPAY ==
--- NOTE | 2022-12-21 09:46 | ED.URI ---
HPI - URI/Sore Throat General Chief Complaint: Upper Respiratory Infection Stated Complaint: Sore Throat Time Seen by Provider: 12/21/22 09:46 Source: patient Mode of arrival: ambulatory Limitations: no limitations History of Present Illness HPI Narrative: Nydia is a 32-year-old female patient presenting to clinic today with complaints of a sore throat, nausea, vomiting, diarrhea, cough, nasal congestion x4 days. She reports no known fever or chills. States she has vomited 4 times total and has had diarrhea 2-3 times per day. MD elicited complaint: sore throat Related Data Home Medications Medication Instructions Recorded Confirmed Acid Business Strategy Manager (omeprazole) 11/28/22 Allergies Allergy/AdvReac Type Severity Reaction Status Date / Time Sulfa (Sulfonamide Allergy Mild Hives Verified 12/21/22 09:46 Antibiotics) nitrofurantoin Allergy Unknown VOMITING Verified 12/21/22 09:46 AND DIARRHEA Review of Systems Review of Systems: Pertinent positives per HPI. Patient denies any fever, chills, rash, headache, visual changes, dizziness, cough, shortness of breath, chest pain, palpitations, nausea, vomiting, diarrhea, constipation, abdominal pain, or any urinary issues. PMF Past Medical History Medical History Anxiety Depression GERD (gastroesophageal reflux disease) Surgical History Surgical History Previous section Family History Family History Mother Diabetes mellitus Social History Social History Alcohol intake: never Substance use: never Living arrangements: with family Gender identity (if verbalized by the patient): Female Sexual Orientation (if Verbalized by the Patient): Straight or Heterosexual Spiritual care concerns: No Comments At the time of my signature, I reviewed and agree with the nursing past medical, surgical, social, and family history. There is no relevant family history pertinent to the patient complaint. Exam Narrative: General: Well-developed, well nourished, in no apparent distress Head: Normocephalic, atraumatic Eyes: Pupils equally round and reactive to light bilaterally, EOM intact, sclera and conjunctive clear, no discharge, lids normal Ears: TMs intact and congested, ear canals clear, no drainage, grossly hearing normal. Nose: Nares patent, clear nasal discharge, no inflammation, no sinus tenderness. Mouth: Oral pharynx red without lesions or masses, good dentition, MMM. Neck: Supple, trachea midline, no enlargement of anterior or posterior cervical nodes, no thyroid masses or goiter palpable. Cardio: Regular rate and rhythm, s1 and s2 normal, no murmur appreciated. Resp: Clear to auscultation bilaterally, no rhonchi, rales, wheezing or rubs Abdomen: Soft, pliable, bowel sounds present in all quadrants, generalized tender to palpation, no organomegly, no CVAT tenderness. Course Course Emergency Course: Portions of this record may have been created with voice recognition software. Level of Care: Express Care Visit Vital Signs Vital signs: Vital signs reviewed MDM - URI/Sore Throat MDM Narrative Medical decision making narrative: At the time of visit patient is resting comfortably on the exam table. Strep screen was obtained and negative in the clinic today. We will send strep for culture. I suspect patient has URI/pharyngitis/viral syndrome/viral gastroenteritis. Supportive measures were discussed with the patient she voiced understanding discharge instructions agrees to treatment plan. Will send in some Zofran for nausea Differential Diagnosis Differential diagnosis: Likely upper respiratory infection, otitis media, sinusitis, viral infection, bronchitis (COVID, gastroenteritis), influe
[2022-12-21 09:54] VITALS: BP 115/83; PULSE 82; RESP 16; TEMP 36.7; O2SAT 100
== END 2022-12-21 10:08 | disposition home or self-care (01) ==
PROVIDERS: Emergency Provider Nurse Practitioner Family; PCP Physician Assistant
DX: K52.9 Noninfective gastroenteritis and colitis, unspecified (principal); B34.9 Viral infection, unspecified; J06.9 Acute upper respiratory infection, unspecified; J02.9 Acute pharyngitis, unspecified; K21.9 Gastro-esophageal reflux disease without esophagitis
CPT/HCPCS: 87081; 87880; 99213; G0463

== ENCOUNTER 2023-03-20 09:11 | Emergency (ER) | payer OTHER, SELFPAY ==
[2023-03-20 09:30] VITALS: BP 123/66; PULSE 65; RESP 16; TEMP 36.5; O2SAT 100
--- NOTE | 2023-03-20 09:48 | ED.EYEPROB ---
HPI - Eye Problem General Chief complaint: Eye Problems Stated complaint: Eyes Irritation Time Seen by Provider: 03/20/23 09:34 Source: patient and RN notes reviewed Mode of arrival: ambulatory Limitations: no limitations History of Present Illness HPI Narrative: Patient presents today complaining of bilateral eye drainage, itching, and crusting with redness that started this morning. Son with similar symptoms. Denies vision changes or recent illness. Related Data Home Medications Medication Instructions Recorded Confirmed omeprazole 40 mg capsule,delayed 40 mg PO BID 03/20/23 03/20/23 release Allergies Allergy/AdvReac Type Severity Reaction Status Date / Time Sulfa (Sulfonamide Allergy Mild Hives Verified 03/20/23 09:35 Antibiotics) nitrofurantoin Allergy Unknown VOMITING Verified 03/20/23 09:35 AND DIARRHEA Review of Systems Review of Systems: CONSTITUTIONAL: Denies body aches, fever, chills, or sweats. EYES: Denies visual changes. + bilateral eye redness and discharge ENT: Denies rhinorrhea, congestion, sore throat, or otalgia. CARDIOVASCULAR: Denies chest pain, palpitations, or edema. RESPIRATORY: Denies cough or dyspnea. GASTROINTESTINAL: Denies abdominal pain, nausea, vomiting, or diarrhea. GENITOURINARY: Denies dysuria or hematuria. SKIN: Denies rash, itching, or wounds. MUSCULOSKELETAL: Denies back pain, joint pain, or myalgia. NEUROLOGIC: Denies headache, numbness, tingling, or weakness. PSYCH: Denies depression or anxiety. [facility] Past Medical History Medical History Anxiety Depression GERD (gastroesophageal reflux disease) Surgical History Surgical History Previous section Family History Family History Mother Diabetes mellitus Social History Social History Alcohol intake: never Substance use: never Living arrangements: with family Gender identity (if verbalized by the patient): Female Sexual Orientation (if Verbalized by the Patient): Straight or Heterosexual Spiritual care concerns: No Comments At time of signature, I have reviewed and agree with nursing past medical, surgical, social and family history unless otherwise noted. Please see nursing chart for further information. There is no relevant family history pertinent to the presenting complaint Exam Narrative: GENERAL: Well-appearing, well-nourished, and in no acute distress. HEAD: Normocephalic, atraumatic. EYES: EOMI. PERRL. Conjunctiva normal. No active drainage. ENT: Mucous membranes pink and moist. NECK: Normal AROM. CHEST: No respiratory distress. EXTREMITIES: Normal range of motion. No edema. SKIN: Warm, dry, no rash. Capillary refill normal. Normal skin turgor. NEURO: No focal deficits. Alert and oriented x3. Gait steady. PSYCH: Normal affect. No signs of depression or anxiety. Course Course Level of Care: Express Care Visit Vital Signs Vital signs: Vital Signs Temperature 97.7 F 03/20/23 09:30 Pulse Rate 65 03/20/23 09:30 Respiratory Rate 16 03/20/23 09:30 Blood Pressure 123/66 03/20/23 09:30 Pulse Oximetry 100 03/20/23 09:30 Oxygen Delivery Room Air 03/20/23 09:30 Temperature 97.7 F 03/20/23 09:30 Pulse Rate 65 03/20/23 09:30 Respiratory Rate 16 03/20/23 09:30 Blood Pressure 123/66 03/20/23 09:30 Pulse Oximetry 100 03/20/23 09:30 Oxygen Delivery Room Air 03/20/23 09:30 Reviewed MDM - Eye Problem MDM Narrative Medical decision making narrative: Son accompanied patient and has been diagnosed with conjunctivitis. Her exam is normal, but she will be given a prescription for drops if needed. Rx for ofloxacin sent to pharmacy. Differential Diagnosis Differential
== END 2023-03-20 09:56 | disposition home or self-care (01) ==
PROVIDERS: Emergency Provider Nurse Practitioner; PCP Physician Assistant
DX: H57.89 Other specified disorders of eye and adnexa (principal); K21.9 Gastro-esophageal reflux disease without esophagitis
CPT/HCPCS: 99213; G0463

== ENCOUNTER 2023-07-31 12:37 | Emergency (ER) | payer OTHER, MEDICAID, SELFPAY | END 2023-07-31 13:03 | disposition left against medical advice (07) | PROVIDERS: Emergency Provider Nurse Practitioner; PCP Physician Assistant | DX: Z53.21 Procedure and treatment not carried out due to patient leaving prior to being seen by health care provider (principal) | CPT/HCPCS: 99199 ==

== ENCOUNTER 2023-07-31 15:01 | Emergency (ER) | payer OTHER, SELFPAY ==
--- NOTE | 2023-07-31 15:22 | ED.NAVMDI ---
HPI - Nausea/Vomiting/Diarrhea General Chief complaint: Nausea/Vomiting/Diarrhea Stated complaint: diarrhea,vomitting Source: patient and RN notes reviewed Mode of arrival: ambulatory Limitations: no limitations History of Present Illness HPI Narrative: 33-year-old female presents with concern for nausea, vomiting, diarrhea for 3 days. She reports about 2 episodes of vomiting a day. She reports diarrhea every morning. She reports body aches, headache, upset stomach. Denies fever. She reports she is waiting the pass kidney stones and has been taking Flomax. She ran out of Zofran that she was given in the ER. She reports urine frequency, denies dysuria. She denies fever. MD elicited complaint: nausea, vomiting and diarrhea Related Data Home Medications Medication Instructions Recorded Confirmed omeprazole 40 mg capsule,delayed 40 mg PO BID 03/20/23 07/31/23 release atomoxetine 25 mg capsule 25 mg PO DAILY 07/31/23 07/31/23 escitalopram oxalate 5 mg tablet 5 mg PO DAILY 07/31/23 07/31/23 famotidine 20 mg tablet 20 mg PO DAILY 07/31/23 07/31/23 tamsulosin 0.4 mg capsule 0.4 mg PO BID 07/31/23 07/31/23 Allergies Allergy/AdvReac Type Severity Reaction Status Date / Time Sulfa (Sulfonamide Allergy Mild Hives Verified 07/31/23 15:32 Antibiotics) nitrofurantoin Allergy Unknown VOMITING Verified 07/31/23 15:32 AND DIARRHEA Review of Systems Review of Systems: CONSTITUTIONAL: Reports malaise. Denies chills, sweats, or fever. ENT: Denies rhinorrhea, congestion, sinus pain, otalgia or sore throat. CARDIOVASCULAR: Denies chest pain, palpitations, or edema. RESPIRATORY: Denies cough or dyspnea. GASTROINTESTINAL: Denies abdominal pain. Reports nausea, vomiting, diarrhea GENITOURINARY: Denies dysuria or hematuria. MUSCULOSKELETAL: Reports myalgia. NEUROLOGIC: Reports headache. All systems reviewed & are unremarkable except as noted in HPI and below PMFSH Past Medical History Medical History Anxiety Depression GERD (gastroesophageal reflux disease) Surgical History Surgical History Previous section Family History Family History Mother Diabetes mellitus Social History Social History Alcohol intake: never Substance use: never Living arrangements: with family Gender identity (if verbalized by the patient): Female Sexual Orientation (if Verbalized by the Patient): Straight or Heterosexual Spiritual care concerns: No Comments At time of signature, agree with nursing past medical, surgical, social and family history. There is no relevant family history pertinent to the presenting complaint Exam Narrative: GENERAL: Well-appearing, well-nourished, and in no acute distress. HEAD: Normocephalic, atraumatic. EYES: PERRLA, conjunctivae clear, and EOMI. ENT: Nares clear, turbinates pink, no rhinorrhea or epistaxis. Mucous membranes moist. Oropharynx without edema, erythema, or lesions. Tonsils not enlarged and without exudate. NECK: Supple. No lymphadenopathy CHEST: Speaks in full sentences. No respiratory distress. HEART: Regular rate and rhythm. ABDOMEN: Soft, flat, nondistended, nontender. No guarding, rebound tenderness, or rigidity. SKIN: Warm, dry, no rash. NEURO: Alert and oriented x3. PSYCH: Normal mood and affect Course Course Emergency Course: Patient is aware of diagnosis, understands and agrees to treatment plan. Anticipatory guidance given. Patient agrees to follow-up as directed and is aware of reasons to seek care at the emergency department. Portions of this record may have been created with voice recognition software Level of Care: Express Care Visit Vital Signs Vital signs: Reviewed. MDM - Nausea/Vo
[2023-07-31 15:45] VITALS: BP 124/84; PULSE 85; RESP 18; TEMP 36.9; O2SAT 100
[2023-07-31] MEDS: ONDANSETRON HCL ODT 4 MG TABLET PO (16:20)
== END 2023-07-31 16:35 | disposition home or self-care (01) ==
PROVIDERS: Emergency Provider Nurse Practitioner; PCP Physician Assistant
DX: R11.2 Nausea with vomiting, unspecified (principal); R19.7 Diarrhea, unspecified; K21.9 Gastro-esophageal reflux disease without esophagitis; F41.9 Anxiety disorder, unspecified; F32.A Depression, unspecified
CPT/HCPCS: 81003; 99213; A9270; G0463

== ENCOUNTER 2024-01-22 14:22 | Emergency (ER) | payer OTHER, SELFPAY ==
[2024-01-22 14:34] VITALS: BP 116/67; PULSE 76; RESP 19; TEMP 37.2; O2SAT 99
--- NOTE | 2024-01-22 14:41 | ED.GENADULT ---
HPI - General Adult General Chief complaint: Extremity Injury, Lower Stated complaint: FALL Time Seen by Provider: 01/22/24 14:41 Source: patient, RN notes reviewed and old records reviewed Mode of arrival: ambulatory Limitations: no limitations History of Present Illness HPI narrative: 33-year-old female presents to the [facility] with complaints of bilateral knee pain and left hip pain. Patient walks with a normal gait. History of surgery on the right knee. Mild swelling noted to the left knee. patient reports that she slipped this morning and fell. Denies hitting head. No loss of consciousness Patient states that she stands long periods of time and has increased pain of bilateral knees. Treatments prior to arrival: none Related Data Home Medications Medication Instructions Recorded Confirmed omeprazole 40 mg capsule,delayed 40 mg PO BID 03/20/23 01/22/24 release famotidine 20 mg tablet 20 mg PO DAILY 07/31/23 01/22/24 Allergies Allergy/AdvReac Type Severity Reaction Status Date / Time Sulfa (Sulfonamide Allergy Mild Hives Verified 01/22/24 14:34 Antibiotics) nitrofurantoin Allergy Unknown VOMITING Verified 01/22/24 14:34 AND DIARRHEA Review of Systems Review of Systems: All systems reviewed & are unremarkable except as noted in HPI and below Constitutional: Constitutional: Reports no additional constitutional complaints ENT: Reports system reviewed and no additional complaints, except as documented Cardiovascular: Cardiovascular: Reports no additional cardiovascular complaints, Denies chest pain and Denies dyspnea Respiratory: Respiratory: Reports no additional respiratory complaints, Denies chest congestion, Denies cough and Denies dyspnea Gastrointestinal: Gastrointestinal: Reports no additional gastrointestinal complaints, Denies abdominal pain, Denies nausea and Denies vomiting Musculoskeletal: Musculoskeletal: Reports as per HPI Integumentary/Breasts: Skin/Breast: Reports system reviewed and no additional complaints, except as docu PMFSH Past Medical History Medical History Anxiety Depression GERD (gastroesophageal reflux disease) Surgical History Surgical History H/O knee surgery right knee 2022 Previous section Family History Family History Mother Diabetes mellitus Social History Social History (Reviewed 12/02/24 @ 19:54 by JENNIFER Browne Alcohol intake: never Substance use: never Living arrangements: with family Gender identity (if verbalized by the patient): Female Sexual Orientation (if Verbalized by the Patient): Straight or Heterosexual Spiritual care concerns: No Comments At the time of my signature, I reviewed and agree with the nursing past medical, surgical, social, and family history. There is no relevant family history pertinent to the patient complaint. Exam Const: General: cooperative, healthy appearing, comfortable, no acute distress, well developed, alert and well nourished Nutritional Appearance: well nourished Orientation/consciousness: patient oriented x3 Limitations: no limitations HENMT: Head: normal to inspection Ears: hearing grossly normal bilaterally and external ears normal Face/Nose/Sinus: Normal external nose present, normal facial exam and face symmetric Face and sinus: normal facial exam and face symmetric Eyes: General: appearance normal, both eyes and all related structures Alignment and Position: alignment normal Periorbital: periorbital findings normal Neck: Neck: normal visual inspection, full ROM, no lymphadenopathy and no meningeal signs Chest: Chest palpation & inspection: normal inspection of the chest Resp: Effort & Inspection: normal respiratory effort and able to speak in complete sentences Cardio: Rate: regular rate Skin: General skin exam: normal color and no rashes or lesions noted Lesions: no lesions Rashes: no rashes Wounds: no wounds Neuro: General: patient oriented x3, gait normal, tone normal, moves all extremities and no meningeal signs Cognition (Neuro): normal cognition Speech: normal speech Gait exam (Neuro): Normal gait present Extrem: General: normal to inspection, full ROM, capillary refill normal and normal gait Right lower extremity: knee Details: normal to inspection and normal ROM; no swelling Left lower extremity: full ROM, normal capillary refill and knee Details: tenderness (Medial aspect), swelling (Lateral lower) and normal ROM; no abrasions, no lacerations, no ecchymosis, no foreign bodies and no penetrating wound Psych: Appearance: grossly normal and well kempt Mental Status: mental status grossly normal Speech and movement: Normal speech and movement present and Clear speech present Affect: normal affect Attitude: cooperative Course Course Level of Care: Express Care Visit Vital Signs Vital signs: Vital Signs Temperature 98.9 F 01/22/24 14:34 Pulse Rate 76 01/22/24 14:34 Respiratory Rate 19 12/02/24 14:34 Blood Pressure 116/67 01/22/24 14:34 Pulse Oximetry 99 01/22/24 14:34 Oxygen Delivery Room Air 01/22/24 14:34 Temperature 98.9 F 01/22/24 14:34 Pulse Rate 76 01/22/24 14:34 Respiratory Rate 19 01/22/24 14:34 Blood Pressure 116/67 01/22/24 14:34 Pulse Oximetry 99 01/22/24 14:34 Oxygen Delivery Room Air 01/22/24 14:34 Reviewed Medical Decision Making MDM Narrative Medical decision making narrative: Patient sitting comfortably in exam room. Nontoxic, vitals stable. Patient in no acute distress Patient presents for Discharge instructions reviewed with patient, as well as provided in writing per nursing staff. The instructions also include specific and strict return/GO TO THE ER as well as f/u information. All questions have been answered, and the patient deny any further questions with discharge and discharge plan. Some parts of this dictation were generated by voice recognition software and may contain typographical and/or grammatical inaccuracies. Differential Diagnosis Differential Diagnosis: Patient sitting comfortably in exam room. Nontoxic, vitals stable. Patient with a normal gait. Patient with mild swelling to the left knee. States that when she fell she landed on her buttocks, twisted her knees. Offered x-rays of bilateral knees, discussed x-rays are looking for fractures. They do not look at ligament issues. Patient then declined x-rays. X-ray not needed for hip. Walking with a normal gait, full range of motion. Work note for 2 days given to patient Discharge instructions reviewed with patient, as well as provided in writing per nursing staff. The instructions also include specific and strict return/GO TO THE ER as well as f/u information. All questions have been answered, and the patient deny any further questions with discharge and discharge plan. Some parts of this dictation were generated by voice recognition software and may contain typographical and/or grammatical inaccuracies. Medical Records Medical records reviewed: Yes I reviewed the external patient's medical records. Vital Signs Vital Signs: Vital Signs Temperature 98.9 F 01/22/24 14:34 Pulse Rate 76 01/22/24 14:34 Respiratory Rate 19 01/22/24 14:34 Blood Pressure 116/67 01/22/24 14:34 Pulse Oximetry 99 01/22/24 14:34 Oxygen Delivery Room Air 01/22/24 14:34 Temperature 98.9 F 01/22/24 14:34 Pulse Rate 76 01/22/24 14:34 Respiratory Rate 19 01/22/24 14:34 Blood Pressure 116/67 01/22/24 14:34 Pulse Oximetry 99 01/22/24 14:34 Oxygen Delivery Room Air 01/22/24 14:34 Reviewed Lab Data Lab results reviewed: Yes I reviewed the patient's lab results. Labs: Reviewed Critical Care Time Critical Care Time Critical Care Time: No Discharge Plan Discharge Clinical Impression: Acute bilateral knee pain, Effusion of knee joint, left Patient Disposition: Home, Self-Care Condition: Stable Instructions: Antibiotic Form, Swollen Knee Joint (ED), Knee Pain (ED) Additional Instructions: Rest, ice and elevate every 2-3 hours for 15-20 minutes Take Tylenol alternating with Motrin as needed for pain Follow-up with primary care provider Follow-up with your orthopedist for further concerns If you change your mind about the x-ray we would be more than happy to do the x-rays of your knee For new or worsening symptoms go directly to the emergency room Patient Language: Austrian Prescriptions: No Action omeprazole 40 mg Capsule,Delayed Release(Dr/Ec) 40 mg PO BID famotidine 20 mg tablet 20 mg PO DAILY Follow-up/Referrals: Lashell,NASREEN Lutz [Primary Care Provider] - 2 Weeks (express care follow up ) Stand Alone Forms: Work/School Release IP Time of Disposition: 14:52
== END 2024-01-22 14:55 | disposition home or self-care (01) ==
PROVIDERS: Emergency Provider Nurse Practitioner; PCP Physician Assistant
DX: M25.562 Pain in left knee (principal); M25.561 Pain in right knee; M25.462 Effusion, left knee; K21.9 Gastro-esophageal reflux disease without esophagitis
CPT/HCPCS: 99212; G0463